=== PATIENT | female | born 1990 | race Caucasian/White ===

== ENCOUNTER → 2024-06-20 | Outpatient (CLI) | payer SELFPAY ==
[2024-06-20 11:40] LABS: Absolute Lymphocyte Count 1.55 X10^3/uL (0.83-4.51); Absolute Neutrophil Count 4.2 X10^3/uL (2.0-7.7); Basophil# 0.02 X10^3/uL; Basophil% 0.3 % (0-1); Eosinophil# 0.07 X10^3/uL; Eosinophils% 1.1 % (0-5); Hemoglobin 11.6 g/dL (12.0-15.0); Lymphocyte # 1.55 X10^3/ul (0.83-4.51); Lymphocyte % 24.9 % (19-41); Mean Corp Hgb Conc 31.4 g/dL (32-36); Mean Corpuscular Hgb 26.5 pg (27.0-32.0); Mean Corpuscular Volume 84.7 fL (81-99); Mean Platelet Vol. 9.4 fl (6.2-12.0); Monocyte# 0.38 X10^3/uL; Monocyte% 6.1 % (0-10); NRBC Flagged by Analyzer 0 % (0-5); Neutrophil # 4.19 X10^3/uL (2.7-7.7); Neutrophil % 67.3 % (47-70); Platelet Count 293 K/mm3 (150-450); RBC Distribution Width CV 13.6 % (11.6-14.6); RBC Distribution Width SD 41.8 fl (35.1-43.9); Red Blood Count 4.37 M/mm3 (4.2-5.4); White Blood Count 6.2 K/mm3 (4.4-11.0)
[2024-06-20 11:54] LABS: hCG Titer Quant., Serum 363 mIU/mL (1-3)
[2024-06-20 12:00] LABS: T4 Free Direct 0.98 ng/dL (0.76-1.46)
[2024-06-22 11:07] LABS: Anti-Cardiolipin Ab, IgG, Qn < 9 GPL U/mL (0-14); Anti-Cardiolipin Ab, IgM, Qn < 9 MPL U/mL (0-12); Beta-2-Glycoprotein I IgA <9 (0-25); Beta-2-Glycoprotein I IgG <9 (0-20); Beta-2-Glycoprotein I IgM <9 (0-32); Dilute Prothrombin Time (dPT) 36.4 sec (0.0-47.6); Dilute Russell Viper Venom 33.2 sec (0.0-47.0); Interpretation Comment: (.); PTT-LA 34.6 sec (0.0-43.5); Thrombin Time 16.3 sec (0.0-23.0); dPT Confirm Ratio 0.98 Ratio (0.00-1.34)
== END | disposition home or self-care (01) ==
LOC: BWCLAB 11:05
PROVIDERS: Referring Provider Advanced Practice Midwife; Visit Provider Advanced Practice Midwife
DX: O09.90 Supervision of high risk pregnancy, unspecified, unspecified trimester (principal); E06.3 Autoimmune thyroiditis; N96 Recurrent pregnancy loss; Z3A.00 Weeks of gestation of pregnancy not specified
CPT/HCPCS: 36415; 84439; 84443; 84702; 85025; 86146; 86147

== ENCOUNTER → 2024-06-24 | Outpatient (CLI) | payer SELFPAY ==
--- NOTE | 2024-06-24 12:21 | US_ITS ---
STUDY: FIRST TRIMESTER OBSTETRICAL ULTRASOUND REASON FOR EXAM: Female, 33 years old elevated HCG . Recent miscarriage. LMP: April 06, 2024. TECHNIQUE: Transvaginal TECHNICAL QUALITY: Adequate. PRIOR ULTRASOUND: None. FINDINGS: There is no demonstrated intrauterine gestational sac. There is no demonstrated yolk sac. The placenta is non-visualized. There is no demonstrated embryo ( pole). The estimated gestation age (EGA) by LMP is 11 weeks, 2 days. The estimated date of delivery (NIKOS) by LMP is January 11, 2025. The uterus measures 9 cm x 7.5 cm x 4.8 cm. There is an 8 mm x 8 mm x 7 mm uterine fibroid. The cervix is closed. The endometrium measures 1.2 cm. The right ovary measures 5.3 cm x 4.9 cm x 2.8 cm there are 2 cysts. 2 right ovarian cysts are seen. The larger cyst measures 2.4 cm x 2.6 cm x 2.5 cm. There is no visualized right adnexal mass or complex lesion. The left ovary measures 3.4 cm x 3.9 cm x 3 cm. There is a 2.3 cm x 2.1 cm x 2.2 cm left ovarian cyst. There is no visualized left adnexal mass or complex lesion. There is minimal fluid in the cul de sac. US/Transvaginal w/Preg US IMPRESSION: No evidence of intrauterine gestation. Bilateral ovarian cysts. Electronically Signed: Efrain Joyce MD at 14:37 EST ,
[2024-06-24 14:09] LABS: hCG Titer Quant., Serum 181 mIU/mL (1-3)
== END | disposition home or self-care (01) ==
PROVIDERS: Referring Provider Advanced Practice Midwife; Visit Provider Advanced Practice Midwife
DX: Z34.90 Encounter for supervision of normal pregnancy, unspecified, unspecified trimester (principal); N96 Recurrent pregnancy loss; Z87.59 Personal history of other complications of pregnancy, childbirth and the puerperium
CPT/HCPCS: 36415; 76817; 84702

== ENCOUNTER → 2024-07-21 | Outpatient (CLI) | payer SELFPAY ==
[2024-07-21 15:23] LABS: Absolute Lymphocyte Count 1.93 X10^3/uL (0.83-4.51); Absolute Neutrophil Count 4.4 X10^3/uL (2.0-7.7); Basophil# 0.05 X10^3/uL; Basophil% 0.7 % (0-1); Eosinophil# 0.11 X10^3/uL; Eosinophils% 1.6 % (0-5); Hemoglobin 11.6 g/dL (12.0-15.0); Lymphocyte # 1.93 X10^3/ul (0.83-4.51); Lymphocyte % 28.3 % (19-41); Mean Corp Hgb Conc 31.4 g/dL (32-36); Mean Corpuscular Volume 86.2 fL (81-99); Mean Platelet Vol. 9.5 fl (6.2-12.0); Monocyte# 0.35 X10^3/uL; Monocyte% 5.1 % (0-10); NRBC Flagged by Analyzer 0 % (0-5); Neutrophil # 4.36 X10^3/uL (2.7-7.7); Neutrophil % 63.9 % (47-70); Platelet Count 274 K/mm3 (150-450); RBC Distribution Width CV 13.5 % (11.6-14.6); RBC Distribution Width SD 42.2 fl (35.1-43.9); Red Blood Count 4.29 M/mm3 (4.2-5.4); White Blood Count 6.8 K/mm3 (4.4-11.0)
[2024-07-21 15:35] LABS: hCG Titer Quant., Serum 18 mIU/mL (1-3)
== END | disposition home or self-care (01) ==
PROVIDERS: Referring Provider Advanced Practice Midwife; Visit Provider Advanced Practice Midwife
DX: Z20.2 Contact with and (suspected) exposure to infections with a predominantly sexual mode of transmission (principal); R10.2 Pelvic and perineal pain
CPT/HCPCS: 36415; 84702; 85025; 87070; 87205

== ENCOUNTER → 2024-07-27 | Outpatient (CLI) | payer SELFPAY ==
--- NOTE | 2024-07-27 11:19 | US_ITS ---
INDICATION: pelvic pain EXAMINATION: Ultrasound US Transvaginal Non-OB TECHNIQUE: Transvaginal (for optimal evaluation of the adnexa) pelvic ultrasound was performed. Grayscale, spectral waveform, and color flow Doppler evaluation of the adnexa. COMPARISON: Prior study dated: OB ultrasound 06/24/2025 FINDINGS: UTERUS: Anteverted. The uterus measures 8.8 x 6.6 x 5.1 cm in diameter. A single intrauterine fibroid is again noted with a 1 x 1 x 0.9 cm hypoechoic posterior fundal intramural fibroid. The endometrial stripe measures 10 mm in AP diameter which is within normal limits. Within the fundal endometrial cavity is a 0.9 x 0.6 x 0.9 cm ovoid focus of soft tissue echogenicity with vessels seen entering this endometrial lesion. RIGHT OVARY: 3.8 x 2.8 x 2.3 cm. Doppler flow is document within the right ovary. Right ovary contains multiple follicles along with a 1.7 x 1.8 x 1.7 cm thin-walled cystic focus showing low-level internal echoes and a minimal hyperemic wall, consistent with a minimally hemorrhagic involuting cyst. LEFT OVARY: 4.0 x 2.7 x 2.8 cm. Doppler flow is documented within the left ovary. Left ovary contains a 2.7 x 2.8 x 2.6 cm rounded thin-walled avascular lesion containing low-level internal echoes indicating a hemorrhagic ovarian cyst. FREE FLUID: None. US/Transvaginal Non- IMPRESSION: Minimally hemorrhagic involuting right ovarian cyst, smaller than on the previous ultrasound. ACR White Paper guidelines (Bey, et. al. Radiology 2010; 256(3):943-954) suggest no follow-up is necessary. The second right ovarian cyst seen on the prior study has resolved. 2.8 cm minimally hemorrhagic left ovarian cyst, which is larger than the simple cyst seen on the prior ultrasound. ACR White Paper guidelines (Bey, et. al. Radiology 2010; 256(3):943-954) suggest no follow-up is necessary. 0.9 cm ovoid focus of soft tissue echogenicity with vascularity within the endometrial cavity, consistent with endometrial polyp. Electronically Signed: Keaton Suggs MD at 1:02 EST ,
== END | disposition home or self-care (01) ==
LOC: US 11:18
PROVIDERS: Referring Provider Advanced Practice Midwife; Visit Provider Advanced Practice Midwife
DX: R10.2 Pelvic and perineal pain (principal)
CPT/HCPCS: 76830

== ENCOUNTER → 2024-08-23 | Outpatient (CLI) | payer SELFPAY ==
[2024-08-23 17:21] LABS: hCG Titer Quant., Serum < 1 mIU/mL (1-3)
== END | disposition home or self-care (01) ==
PROVIDERS: Referring Provider Obstetrics & Gynecology; Visit Provider Obstetrics & Gynecology
DX: O03.9 Complete or unspecified spontaneous abortion without complication (principal)
CPT/HCPCS: 36415; 84702